=== PATIENT | male | born 1940 | race Caucasian/White ===

== ENCOUNTER 2021-01-27 14:02 | Day surgery (SDC) | payer MEDICARE, BC ==
[~2021-01-27] VITALS: Ht 193 cm; Wt 103.5 kg
[~2021-01-27 14:02] MED LIST: ADALAT CC30 MG PO; ASPIRIN 32325 MG/TAB PO; ASTELIN NASAL S34 ML NAS; B COMPLEX & B121 TAB PO; BETAPACE 80MG80 MG PO; CENTRUM1 TA1; FLONASEALLERGY NS; LOFIBRA160 MG PO; METAMUCIL3.4 GM/DOS PO; PROTONIX 40MG T40 MG PO; PULMICORT180 MCG/Ac IH; SINGULAIR 110 MG/TAB PO; SYNTHROID0.2 MG/TAB PO; ULTRAM 50MG TAB50 MG PO; ULTRAVATE CREAM15 GM TP; VENTOLIN0.09 MG IH; VIAGRA50 M1 PO; VOLTAREN GEL 1%1 TU TP; ZOCOR 20MG20 MG PO
[2021-01-27 14:40] VITALS: BP 123/97; PULSE 110; TEMP 98.3
[2021-01-27] MEDS ORDERED: CLARITIN 1010 MG/TAB PO (15:01)
[2021-01-27] MEDS ORDERED: CARTIA XT240 MG PO (15:03)
[2021-01-27] MEDS ORDERED: MIRALAX PA17 GM/Dose PO (15:06)
[2021-01-27] MEDS ORDERED: PREDNISONE10 MG PO (15:10)
[2021-01-27 15:45] VITALS: BP 108/80; PULSE 102; TEMP 97.6
--- NOTE | 2021-01-27 15:45 | NUR ---
Patient returned to bay 6 via cart. Cart brought into bay. Postop vital signs started. Patient is alert and oriented, request apple juice and orange jello. Will continue to monitor.
[2021-01-27 16:00] VITALS: BP 140/115; PULSE 103
--- NOTE | 2021-01-27 16:00 | NUR ---
Patient sitting up in bed, denies discomfort. Alert and oriented. Vital signs stable. Tolerating food an ddrink well. Will continue to monitor.
[2021-01-27 16:13] VITALS: BP 108/80; PULSE 119
--- NOTE | 2021-01-27 16:15 | NUR ---
Patient is sitting up in bed, denies discomfort. Alert and oriented. Patient request to be discharged.
--- NOTE | 2021-01-27 17:00 | NUR ---
Reviewed discharge instructions with patient and friend, both verbalized understanding. D/C IV with no complications. Instructed patient to dress and then call for transportation.
--- NOTE | 2021-01-27 17:15 | NUR ---
Transfered patient via wheelchair to [employer] personal vehicle accompanied by friend. All belonging returned to patient and sent with friend.
== END 2021-01-27 17:15 | disposition home or self-care (01) ==
LOC: SDCO 14:02
DX: K22.2 Esophageal obstruction (principal); K21.00 Gastro-esophageal reflux disease with esophagitis, without bleeding; K44.9 Diaphragmatic hernia without obstruction or gangrene; I10 Essential (primary) hypertension; E78.5 Hyperlipidemia, unspecified; E03.9 Hypothyroidism, unspecified; J30.2 Other seasonal allergic rhinitis; Z85.828 Personal history of other malignant neoplasm of skin; Z79.82 Long term (current) use of aspirin; Z79.899 Other long term (current) drug therapy; Z79.890 Hormone replacement therapy; Z79.51 Long term (current) use of inhaled steroids
CPT/HCPCS: C1726; J2704; J7120

== ENCOUNTER 2021-02-03 15:22 | Inpatient (IN) | payer MEDICARE, BC ==
[~2021-02-03] VITALS: Ht 193 cm; Wt 102.5 kg
[2021-02-03] VITALS (81 sets, daily range): BP systolic 122–141; BP diastolic 95–105; PULSE 89–114; O2SAT 89–100
[~2021-02-03 15:22] MED LIST changes: +CARTIA XT240 MG PO; +CLARITIN 1010 MG/TAB PO; +MIRALAX PA17 GM/Dose PO; +PREDNISONE10 MG PO
[2021-02-03 15:43] LABS: HEMATOCRIT 49.1 % (42.0-52.0); HEMOGLOBIN 16.5 g/dl (13.5-18.0); MEAN CELL VOLUME 111 fl (80.0-100.0); MEAN CORPUSCULAR HEMOGLOBIN 37 pg (27.0-31.0); MEAN CORPUSCULAR HGB CONC 34 g/dl (33.0-37.0); MEAN PLATELET VOLUME 11.2 fl (7.4-10.4); PLATELET COUNT 215 K/mm3 (130-400); RED BLOOD COUNT 4.42 M/mm3 (4.20-5.60); REDCELL DISTRIBUTION WIDTH-CV 15.5 % (11.5-14.5)
[2021-02-03 15:54] LABS: ALANINE AMINOTRANSFERASE 43 U/L (4-49); ALBUMIN 3.2 gm/dL (3.5-5.0); ALKALINE PHOSPHATASE 121 U/L (50-136); ANION GAP 2 mmol/L (7-16); AST,SGOT 53 U/L (15-37); BILIRUBIN,TOTAL 2.2 mg/dL (0.0-1.0); BLOOD UREA NITROGEN 16 mg/dL (9-20); CALCIUM 9.2 mg/dL (8.4-10.2); CARBON DIOXIDE 29 mmol/L (22-30); CHLORIDE 104 mmol/L (98-107); CREATININE, serum 1.12 (0.66-1.25); GLUCOSE 124 mg/dL (74-106); POTASSIUM 4.4 mmol/L (3.4-5.0); SODIUM 135 mmol/L (137-145); TOTAL PROTEIN 6.7 gm/dL (6.4-8.2)
[2021-02-03 16:07] LABS: TROPONIN-I < 0.012 ng/mL (0.000-0.035)
[2021-02-03 16:28] LABS: ANISOCYTOSIS 1+; BAND 23 % (0-10); LYMPHOCYTE 10 % (20.0-51.0); NEUTROPHILS 65 % (42.0-75.2); PLATELET ESTIMATE NORMAL (NORMAL)
[2021-02-03] MEDS ORDERED: [UNRECOGNIZED DRUG - REMARK] (17:45)
--- NOTE | 2021-02-03 19:55 | NUR ---
PT NOT IN ROOM AT THIS TIME.
--- NOTE | 2021-02-03 23:17 | NUR ---
Patient arrived to ICU from ER at approximately 2100. Alert and oriented x 4, and able to make needs known. Denies having pain and discomfort at this time. Peripheral IV to right AC with Cardizem drip running per orders. Site is without redness, warmth, swelling, and pain. Denies having SOB and dyspnea. LS CTA. Respirations even and unlabored. Heart rate irregular. Has been in the 70s-110s most of the time, but did get up to 125 when walking to bathroom, but did not sustain in the 120s. Denies having any chest pain or discomfort. Denies palpitations. Capillary refill less than 3 seconds. Non-tenting skin turgor. BSAx4. Abdomen soft and non-tender. When assisted to bathroom, urine was yellow and clear. Patient has laceration to left forehead, open to air, no drainage. Bruising to left eye, BUE, BLE. Scabs to left elbow and left knee. Dressings to skin tears/abrasions to left forearm/hand and right gonzalez/foot. Did not want dressings removed due to being just changed. Abrasion to right knee, tegaderm CDI. Patient reports all injuries are related to recent falls. Patient given sandwich box as requested. Voices no questions, needs, or concerns at this time. Resting in bed with call light within reach.
[2021-02-04] VITALS (250 sets, daily range): BP systolic 98–123; BP diastolic 66–96; PULSE 40–106; TEMP 97.7–98.4; O2SAT 89–100
[2021-02-04 05:45] LABS: HEMATOCRIT 44.8 % (42.0-52.0); HEMOGLOBIN 15.3 g/dl (13.5-18.0); MEAN CELL VOLUME 112 fl (80.0-100.0); MEAN CORPUSCULAR HEMOGLOBIN 38 pg (27.0-31.0); MEAN CORPUSCULAR HGB CONC 34 g/dl (33.0-37.0); MEAN PLATELET VOLUME 11.4 fl (7.4-10.4); PLATELET COUNT 195 K/mm3 (130-400); RED BLOOD COUNT 4.01 M/mm3 (4.20-5.60); REDCELL DISTRIBUTION WIDTH-CV 15.6 % (11.5-14.5)
[2021-02-04 06:00] LABS: ANION GAP 2 mmol/L (7-16); BLOOD UREA NITROGEN 16 mg/dL (9-20); CALCIUM 8.8 mg/dL (8.4-10.2); CARBON DIOXIDE 28 mmol/L (22-30); CHLORIDE 105 mmol/L (98-107); CREATININE, serum 0.94 (0.66-1.25); GLUCOSE 91 mg/dL (74-106); POTASSIUM 3.7 mmol/L (3.4-5.0); SODIUM 135 mmol/L (137-145)
[2021-02-04 06:05] LABS: MAGNESIUM 1.4 mg/dL (1.6-2.3)
[2021-02-04 06:06] LABS: BAND 8 % (0-10); EOSINOPHIL 1 % (0-4); LYMPHOCYTE 6 % (20.0-51.0); METAMYELOCYTE 1 % (0-0); NEUTROPHILS 82 % (42.0-75.2); PLATELET ESTIMATE NORMAL (NORMAL)
[2021-02-04 06:07] LABS: ANISOCYTOSIS 1+; HYPOCHROMIA 1+; POIKILOCYTOSIS 1+
[2021-02-04 06:08] LABS: OVALOCYTES 1+
--- NOTE | 2021-02-04 06:09 | NUR ---
Patient has been resting in bed with call light within reach. High fall risk precautions in place. Continues on Cardizem drip at 15 mg/hr. Continues to be in A-fib, HR ranging 60s-80s. Does increase to 120s when up walking. Denies having pain and discomfort. Voices no questions, needs, or concerns at this time. Resting in bed with call light within reach.
[2021-02-04 06:12] LABS: TROPONIN-I < 0.012 ng/mL (0.000-0.035)
--- NOTE | 2021-02-04 07:10 | NUR ---
RECEIVED REPORT FROM HOLLY WOOD. PT RESTING IN BED ON RA. CALL LIGHT WITHIN REACH. VSS. BREAKFAST TRAY ORDERED PER PT'S REQUEST.
--- NOTE | 2021-02-04 10:50 | NUR ---
DR CAHPARRO AT BEDSIDE FOR ASSESSMENT AND DISCUSSING POC WITH PT. PROVIDER STATES TO STOP CARDIZEM GTT AND HE WILL ORDER PO MEDICATIONS. SEE MAR.
--- NOTE | 2021-02-04 12:26 | NUR ---
DR ESCALANTE AT BEDSIDE FOR ASSESSMENT.
--- NOTE | 2021-02-04 14:07 | NUR ---
Plans to return home in independently. Patient reports that he resides alone and lost in 16. Patient reports that he has a son who is JERI Gallegos and a Friends that helps him who is a women Ilia Guo. Patient shares that he does not have home health. PCP is Dr. Bermeo with last apt 02/03/2021, Also works with Dr. Kelly and Dr. Ambriz. Patient reports that he has a walker but it is too small due to him being 6 ft 4. Patient reports that he obtains medications at [facility] on [facility]. Offered additional supports at home but declined. Patient reports that he is still very mobile and working. Educated in supports from case management. MIRELLA.
--- NOTE | 2021-02-04 14:55 | NUR ---
REPORT GIVEN TO HOLLY HILTON. RN STATES THAT ROOM IS NOT CLEANED YET AND WILL CALL BACK ONCE IT IS. PT UPDATED ON POC.
--- NOTE | 2021-02-04 16:07 | NUR ---
PT TRASNFERRED TO 311 VIA WC ON RA. ALL PERSONAL BELONGINGS SENT WITH PT.
--- NOTE | 2021-02-04 18:07 | NUR ---
Patient arrive from ICU and is very pleasant. Patient's visitor was present. During the assessment, this RN noticed the patient to have very limited sensation in bilateral feet. Patient's visitor and DPOA did show concern for the patient's well-being and do not feel that the patient's PCP is addressing all of the patient's needs/concerns. Patient does have multiple skin issues. Patient has abrasions on bilateral knees. One knee is covered with a dressing. Dressing was removed and a clean one was applied. Wound was rinsed with NS and covered again with a non-adherent dressing. There is an ulcer on the bottom of the patient's right foot that is wrapped. This dressing was left intact as the patient's PCP is managing this and just re-wrapped it at the patient's last visit. There is also a scabbed ulcer on the patient's 3rd toe, on the left foot. Patient has scattered ecchymosis and petechiae. The patient also has a laceration on the left side of his forehead, as well as a blackened eye. All of these injuries are related to a fall that the patient had at home. This RN assisted the patient to the bathroom and he did well. The patient is a bit unsteady and needs to hold onto something for stabilization. This RN will see about getting the patient a walker for use. Bed alarm and chair alarm is on, call light is within reach. Patient has been made aware that he is a fall risk and patient did verbalize understaning.
--- NOTE | 2021-02-04 22:46 | NUR ---
Patient assessed around 2124. Denies having pain and discomfort. High fall risk precuations in place. Using walker with one assist in room due to unsteady gait. Denies chest pain and discomfort. Telemetry showing A-fib, HR 70-90s at this time. Voices no questions, needs, or concerns at this time. Resting in bed with call light within reach.
[2021-02-05 00:22] VITALS: BP 104/64; PULSE 52; TEMP 97.6
[2021-02-05 03:43] VITALS: BP 119/82; PULSE 78; TEMP 97.7
--- NOTE | 2021-02-05 05:26 | NUR ---
Patient continues to show A-fib, with rates between 60s-80s on telemetry. Voices no questions, needs, or concerns at this time. Denies having pain and discomfort. Resting in bed with call light within reach.
[2021-02-05 07:11] VITALS: BP 99/74; PULSE 87; TEMP 98
[2021-02-05 07:40] LABS: CALCIUM 8.2 mg/dL (8.4-10.2); CREATININE, serum 0.81 (0.66-1.25); MAGNESIUM 1.9 mg/dL (1.6-2.3); POTASSIUM 3.6 mmol/L (3.4-5.0)
--- NOTE | 2021-02-05 10:53 | NUR ---
SPOKE WITH DR ESCALANTE ABOUT POTENTIAL HEART CATH, DR. ESCALANTE GAVE ORDER TO DC LOVENOX. ORDER PLACED.
[2021-02-05 11:07] LABS: HEMATOCRIT 48.8 % (42.0-52.0); HEMOGLOBIN 16.6 g/dl (13.5-18.0); MEAN CELL VOLUME 112 fl (80.0-100.0); MEAN CORPUSCULAR HEMOGLOBIN 38 pg (27.0-31.0); MEAN CORPUSCULAR HGB CONC 34 g/dl (33.0-37.0); MEAN PLATELET VOLUME 11.1 fl (7.4-10.4); PLATELET COUNT 247 K/mm3 (130-400); RED BLOOD COUNT 4.35 M/mm3 (4.20-5.60); REDCELL DISTRIBUTION WIDTH-CV 15.5 % (11.5-14.5)
[2021-02-05 11:14] LABS: CALCIUM 8.8 mg/dL (8.4-10.2); CREATININE, serum 0.91 (0.66-1.25); POTASSIUM 3.9 mmol/L (3.4-5.0)
[2021-02-05 11:18] LABS: INR 1.2 (0.8-3.0)
[2021-02-05 11:20] LABS: PARTIAL THROMBOPLASTIN TIME 36.5 SECONDS (26.0-37.0)
--- NOTE | 2021-02-05 11:24 | NUR ---
CALLED DR. LUGO TO CONFIRM ACCUCHECK ORDER. PHYSICIAN WANTED ACHS, ORDER PLACED
[2021-02-05 11:29] VITALS: BP 104/77; PULSE 89; TEMP 97.5
[2021-02-05 16:08] VITALS: BP 108/80; PULSE 89; TEMP 98
--- NOTE | 2021-02-05 17:20 | NUR ---
PT PLEASANT, AOX4, DENIES PAIN, AFIB RATE CONTROLLED AT REST, UNCONTROLLED WITH ACTIVITY, NO OTHER NEEDS AT THIS TIME.
[2021-02-05 19:09] VITALS: BP 108/66; PULSE 90; TEMP 97.7
--- NOTE | 2021-02-05 20:00 | NUR ---
Report received, assumed care for date night caregiver. Assessment comlete. A&Ox3. Denies pain/nausea/shortness of breath. VS stable. RIght AC INT flushes without difficulty. Plan of care discussed for this shift to include HS meds/NPO at midnight/calling for questions/concerns. Verbalizes understanding/denies needs. Call light in reach. Will monitor.
[2021-02-06] VITALS (9 sets, daily range): BP systolic 91–132; BP diastolic 60–94; PULSE 58–127; TEMP 97.4–98.3
--- NOTE | 2021-02-06 05:43 | NUR ---
Rested well this shift. Has been NPO since midnight for heart cath today. IV fluids hung and meds given per dr order. Denied pain/nausea. Short of breath with activity. Tele showing a fib. Denies current needs. Call light in reach. Will monitor.
--- NOTE | 2021-02-06 06:50 | NUR ---
Report with HOLLY Dyson. Pt resting in bed with eyes closed, resp even and unlabored. IVF's to gravity tubing infusing per orders without s/s of complications. Call light in reach. Bed alarm on.
--- NOTE | 2021-02-06 11:18 | NUR ---
Pt to landscape laborer for procedure via bed.
--- NOTE | 2021-02-06 12:55 | NUR ---
First visit from the estate and trust tax principal. Patient was in a procedure, estate and trust tax principal prayed for patient while standing outside their door.
--- NOTE | 2021-02-06 14:45 | NUR ---
After first releasing 5 mls air from TR band and no signs of bleeding, final 7 mls air released, still no signs of bleeding. Bandaid placed over right radial puncture site. POC reviewed with pt again. Call light in reach.
--- NOTE | 2021-02-06 15:14 | NUR ---
PT is recommending that the patient may need post-acute rehab. He is walking 200 ft with them. SW met with the patient to review d/c plan and discussed therapy's recommendation. The patient reports that he prefers returning home upon discharge and does not want to go to a SNF. The patient states that the [facility] is connected to [facility]. He states that he could just do that, but would probably need an order for it. SW discussed home health services and their benefits. The patient reports that he is not sure at this time and would like some time to think about home health vs outpatient therapy. SW to continue to follow.
[2021-02-06] MEDS ORDERED: NITROSTAT0.4 MG/TAB SL (16:45)
[2021-02-06] MEDS ORDERED: ZEBETA 5MG5 MG PO (16:46)
[2021-02-06] MEDS ORDERED: CAPOTEN 12.512.5 MG PO (16:48)
[2021-02-06] MEDS ORDERED: CARDIZEM 90MG T90 MG PO (16:48)
[2021-02-06] MEDS ORDERED: ZOCOR 10MG10 MG PO (16:48)
[2021-02-06] MEDS ORDERED: ASPIRIN E.C. 8181 MG PO (16:49)
[2021-02-06] MEDS ORDERED: MAG-OX 400400 MG/TAB PO (16:49)
[2021-02-06] MEDS ORDERED: MONODOX100 PO (16:50)
--- NOTE | 2021-02-06 17:45 | NUR ---
Dressings placed over right leg, foot, and knee wounds using aquacell, sof roll and coban. Discharge instructions reviewed with pt regarding new medications and follow-up appointments needing made. Pt verbalizes understanding, questions invited and answered.
--- NOTE | 2021-02-06 18:30 | NUR ---
Pt discharged home, escorted out of facility via WC accompanied by CARE SUPPORT REPRESENTATIVE.
== END 2021-02-06 18:45 | disposition home or self-care (01) | DRG 287 ==
LOC: COL.ER 15:22 → ICU 16:57 → MEDICAL 02-04 16:20
PROVIDERS: Internal Medicine Cardiovascular Disease; Nurse Practitioner Primary Care; ADMIT Internal Medicine
PROC: 4A023N7 Measurement of Cardiac Sampling and Pressure, Left Heart, Percutaneous Approach (ICD-10-PCS; principal; 2021-02-06)
PROC: B2111ZZ Fluoroscopy of Multiple Coronary Arteries using Low Osmolar Contrast (ICD-10-PCS; 2021-02-06)
DX: I48.0 Paroxysmal atrial fibrillation (principal); J44.1 Chronic obstructive pulmonary disease with (acute) exacerbation; I50.20 Unspecified systolic (congestive) heart failure; E78.5 Hyperlipidemia, unspecified; E03.9 Hypothyroidism, unspecified; K21.9 Gastro-esophageal reflux disease without esophagitis; F10.10 Alcohol abuse, uncomplicated; F17.210 Nicotine dependence, cigarettes, uncomplicated; Z20.822 Contact with and (suspected) exposure to COVID-19; E83.42 Hypomagnesemia; I49.9 Cardiac arrhythmia, unspecified; I87.8 Other specified disorders of veins; I25.10 Atherosclerotic heart disease of native coronary artery without angina pectoris
CPT/HCPCS: 99223-AI; 99232-AI; 99239; C1769; C1887; J1644; J1650; J1815; J2250; J2920; J3010; J3475; J7512; Q9967

== ENCOUNTER → 2021-03-13 | Outpatient (CLI) | payer MEDICARE, BC ==
[~2021-03-13] MED LIST changes: +ASPIRIN E.C. 8181 MG PO; +BETAMETHASONE D0.053 TP; +CAPOTEN 12.512.5 MG PO; +CARDIZEM 90MG T90 MG PO; +DIGITEK0.25 MG PO; +LASIX 20MG TABL20 MG PO; +MAG-OX 400400 MG/TAB PO; +MONODOX100 PO; +NITROSTAT0.4 MG/TAB SL; +PREDNISONE 5MG5 MG PO; +PROBIOTIC ACID1 EAC3 PO; +ZEBETA 5MG5 MG PO; +ZOCOR 10MG10 MG PO; +ZOSYN 3 GM-0.371 PD1 IV; +[UNRECOGNIZED DRUG - REMARK]
== END ==
LOC: ZCOL.LAB 16:19
DX: S91.301A Unspecified open wound, right foot, initial encounter (principal)

== ENCOUNTER → 2021-04-07 | Outpatient (CLI) | payer MEDICARE, BC | LOC: ZCOL.LAB 17:15 | DX: L97.509 Non-pressure chronic ulcer of other part of unspecified foot with unspecified severity (principal) ==

== ENCOUNTER → 2021-05-04 | Outpatient (CLI) | payer MEDICARE, BC | LOC: ZCOL.LAB 13:18 | DX: L97.509 Non-pressure chronic ulcer of other part of unspecified foot with unspecified severity (principal) ==

== ENCOUNTER 2021-05-26 16:29 | Inpatient (IN) | payer MEDICARE, BC ==
[~2021-05-26] VITALS: Ht 193 cm; Wt 88.0 kg
[~2021-05-26 16:29] MED LIST changes: -BETAMETHASONE D0.053 TP; -DIGITEK0.25 MG PO; -LASIX 20MG TABL20 MG PO; -PREDNISONE 5MG5 MG PO; -PROBIOTIC ACID1 EAC3 PO; -ZOSYN 3 GM-0.371 PD1 IV
[2021-05-26 17:07] LABS: BASO % 0.4 % (0.0-2.0); EOS % 0.1 % (0-4.0); GRAN # 5.2 K/mm3 (1.4-6.5); HEMATOCRIT 43.5 % (42.0-52.0); HEMOGLOBIN 14.6 g/dl (13.5-18.0); LYMPH # 1.4 K/mm3 (1.2-3.4); LYMPH % 18.6 % (20.0-51.0); MEAN CELL VOLUME 105 fl (80.0-100.0); MEAN CORPUSCULAR HEMOGLOBIN 35 pg (27.0-31.0); MEAN CORPUSCULAR HGB CONC 34 g/dl (33.0-37.0); MEAN PLATELET VOLUME 10.8 fl (7.4-10.4); MONO # 0.7 K/mm3 (0.1-0.6); MONO % 9.2 % (1.7-9.3); PLATELET COUNT 172 K/mm3 (130-400); RED BLOOD COUNT 4.15 M/mm3 (4.20-5.60); REDCELL DISTRIBUTION WIDTH-CV 14.7 % (11.5-14.5)
[2021-05-26 17:13] LABS: INR 1.1 (0.8-3.0); PROTHROMBIN TIME 12.1 SECONDS (9.7-12.8)
[2021-05-26 17:24] LABS: ALBUMIN 3.6 gm/dL (3.4-4.8); BILIRUBIN,TOTAL 1.2 mg/dL (0.2-1.2); CALCIUM 10.2 mg/dL (8.4-10.2); CREATININE, serum 1.13 mg/dL (0.72-1.25); POTASSIUM 3.8 mmol/L (3.5-4.5); TOTAL PROTEIN 8.3 gm/dL (6.2-8.1)
[2021-05-26 17:30] LABS: TROPONIN-I 0.012 ng/mL (0.00-0.033)
[2021-05-26] MEDS ORDERED: PREDNISONE 5MG5 MG PO (20:19)
[2021-05-26] MEDS ORDERED: LASIX 20MG TABL20 MG PO (20:20)
[2021-05-26 20:55] VITALS: BP 118/85; PULSE 54; TEMP 97.6
--- NOTE | 2021-05-26 21:15 | NUR ---
Admitted to medical floor from er- dx-afib/RVR,, on tele rate at this time 90-110, on heparin drip at 17.5cc/hr, on cardizem drip at 5cc/hr, will have next hepxa at 0030, alert/oriented x3, denies pain,has slight lower extremity , wound cultures ordered for wounds on feet-- has quarter size open area on bottom of right foot- redressed, also has 2 small open yamil on left 3rd toe, redressed,
--- NOTE | 2021-05-26 22:49 | NUR ---
Vancomycin Initial Dosing Pharmacy Note Ordering provider: Yoan Frederick MD Indication/duration: Osteomyelitis x 5 days Relevant comorbidities: HTN, HFrEF LABS: SCr = 1.13, WBC = 7.4 Recommendation: Will draw troughs and follow levels. Loading dose: 2 grams Maintenance dose: 1.25 grams every 12 hours Trough goal: 15-20 ug/mL
[2021-05-26 23:41] VITALS: BP 118/82; PULSE 127; TEMP 97.6
[2021-05-27] VITALS (8 sets, daily range): BP systolic 106–128; BP diastolic 72–95; PULSE 60–108; TEMP 97.5–98.5
--- NOTE | 2021-05-27 06:00 | NUR ---
Did not get much sleep due IV meds/lab work etc. VSS, most recent B/P 106/79,pulse 67-still in afib, remains on cardizem drip at 5mg/hr, Meka aware of B/P and said to just hold the 0700 dose of capoten this morning,, heparin drip at 14.5cc/hr and next hepxa check at 1000
--- NOTE | 2021-05-27 06:59 | NUR ---
Pt. progressing w/ plan of care. This RN introduced self and assessed pt. Pt. reports feeling well this AM. Pt. educated on coughing, deep breathing, and encouraged pt. to be OOB for meals. Pt. agreeable. Pt. oriented to using the telephone to order breakfast. Needs addressed. Call light and belongings in reach. Bed alarm on.
--- NOTE | 2021-05-27 12:41 | NUR ---
Lawn And Tree Service Spray Supervisor offered prayer and support with patient.
--- NOTE | 2021-05-27 14:42 | NUR ---
SW met with patient to complete intake. Patient provides that he lives alone in [place] and states his point of contact is son Duc Gallegos [phone]. Patient states that he uses a walker is independent with ADL's and does not currently utilize a HH service. Patient provides that his PCP is Dr. Bermeo, pharmacy is [facility] in and states he is able to afford his medication. Patient also provides that his DPOA of HC is his son Duc. Patient states that at this time his plan is to return back to his home up discharge, and has no concern with doing so. SW will continue to follow. DC plan: Home (patient states he will consider HH only if needed)
--- NOTE | 2021-05-27 16:17 | NUR ---
Pt. progressing w/ plan of care. Pt. worked with therapy today and did well. Pt. has been sitting OOB in the chair most of the day. This RN spoke w/ Dr. Guo regarding pt.'s cardizem drip. Dr. Guo ordered cardizem drip to be decreased to 2.5mg/hr. New rate changed per Dr. Guo and pharmacy. Pt. sitting upright in chair ordering dinner at this time. Needs addressed, call light and belongings in reach.
--- NOTE | 2021-05-27 20:45 | NUR ---
Initial shift assessment done- denies pain/SOB, tele on afib, rate 70,s, VSS, heparin drip at 11.5cc/hr, cardizem drip at 2.5cc/hr. Next hepxa at 0100. has been up in chair most of the day-- helped back to bed at this time- using urinal without problems.
[2021-05-28] VITALS (7 sets, daily range): BP systolic 118–135; BP diastolic 59–98; PULSE 67–112; TEMP 97.4–98.5
--- NOTE | 2021-05-28 06:03 | NUR ---
Has been resting fairly well for the past couple hours- vitals very stable, continues in afib, rate mostly 70-80,s,,, does jump up to 110-120/min when using the urinal at bedside. Cardizem drip at 2.5cc/hr, heparing drip at 11.5cc/hr, next hepxa at 0730.
[2021-05-28 08:25] LABS: BASO % 0.7 % (0.0-2.0); EOS # 0.1 K/mm3 (0.0-0.7); EOS % 1.1 % (0-4.0); GRAN # 3.7 K/mm3 (1.4-6.5); GRAN % 60.1 % (42.2-75.2); HEMATOCRIT 42.3 % (42.0-52.0); HEMOGLOBIN 13.8 g/dl (13.5-18.0); LYMPH # 1.7 K/mm3 (1.2-3.4); MEAN CELL VOLUME 107 fl (80.0-100.0); MEAN CORPUSCULAR HEMOGLOBIN 35 pg (27.0-31.0); MEAN CORPUSCULAR HGB CONC 33 g/dl (33.0-37.0); MEAN PLATELET VOLUME 11.3 fl (7.4-10.4); MONO # 0.7 K/mm3 (0.1-0.6); MONO % 10.6 % (1.7-9.3); PLATELET COUNT 153 K/mm3 (130-400); RED BLOOD COUNT 3.96 M/mm3 (4.20-5.60); REDCELL DISTRIBUTION WIDTH-CV 14.6 % (11.5-14.5)
[2021-05-28 08:31] LABS: ALBUMIN 3.1 gm/dL (3.4-4.8); CALCIUM 9.4 mg/dL (8.4-10.2); CREATININE, serum 0.95 mg/dL (0.72-1.25); MAGNESIUM 1.7 mg/dL (1.6-2.6); PHOSPHOROUS 3.3 mg/dL (2.3-4.7); POTASSIUM 3.3 mmol/L (3.5-4.5)
--- NOTE | 2021-05-28 11:07 | NUR ---
Patient laying in bed upon entering the room. Patient does not have any complaints/concerns this morning. Patient remains on caridzem drip @ 2.5 mL/hr and heparin drip @ 11.5 mL/hr.
--- NOTE | 2021-05-28 18:29 | NUR ---
Patient has done well today. Cardizem gtt was discontinued per . Patient's IV in his right forearm was leaky. This RN was doing a dressing change, and the IV continued to leak. IV was removed. Patient still has a working IV in his left forearm.
--- NOTE | 2021-05-28 20:00 | NUR ---
Report received, assumed care for pie dough roller. Assessment complete. A&Ox4. Denies pain/nausea/shortness of breath. VS stable. Heparin@11.5ml/hr to left FA IV infusing without difficulty. New IV started to right forearm x2 attempts-20g for antibiotic infusion. Tele reporting a-Fib. Plan of care discussed for this shift to include meds/fluid restriction/calling for questions/concerns. Verbalizes understanding/denies needs. Call light in reach. Will monitor.
[2021-05-29] VITALS (9 sets, daily range): BP systolic 91–145; BP diastolic 73–93; PULSE 72–144; TEMP 97.4–98.5
--- NOTE | 2021-05-29 01:00 | NUR ---
Resting eyes closed. NO s/s of pain noted.
--- NOTE | 2021-05-29 05:40 | NUR ---
Rested well this shift. Fluid restriction enforced. Increased urine output. Denied pain/nausea/shortness of breath. VS remained stable. Tele reports a-fib. Denies current questions/concerns. Call light in reach. Will monitor.
--- NOTE | 2021-05-29 08:19 | NUR ---
PT ALERT AND ORIENTED. PT HAS RASH ON BACK EXTENDING FROM SHOULDER BLADES TO LOW BACK. PT HAS ULCER ON BALL OF RIGHT FOOT AND LEFT THIRD TOE. DRESSINGS, CLEAN, DRY, INTACT. PT HAS 1+ PULSES IN DORSALIS PEDIS AND POSTERIOR TIBIAL, CAP REFILL <3S. PT HAS RONEL DISCOLORATION OF FEET BILATERALLY. PT CALL LIGHT WITHIN REACH. BREAKFAST ON TABLE.
--- NOTE | 2021-05-29 08:26 | NUR ---
NOTIFIED JOANIE RIOS OF PT TACHYCARDIA. EKG ORDERS RECEIVED BY PHONE.
[2021-05-29 09:53] LABS: BASO % 0.7 % (0.0-2.0); EOS # 0.1 K/mm3 (0.0-0.7); EOS % 1.2 % (0-4.0); GRAN # 3.2 K/mm3 (1.4-6.5); GRAN % 56.8 % (42.2-75.2); HEMATOCRIT 42.8 % (42.0-52.0); HEMOGLOBIN 14.1 g/dl (13.5-18.0); LYMPH # 1.7 K/mm3 (1.2-3.4); LYMPH % 30.4 % (20.0-51.0); MEAN CELL VOLUME 105 fl (80.0-100.0); MEAN CORPUSCULAR HEMOGLOBIN 35 pg (27.0-31.0); MEAN CORPUSCULAR HGB CONC 33 g/dl (33.0-37.0); MEAN PLATELET VOLUME 11.5 fl (7.4-10.4); MONO # 0.6 K/mm3 (0.1-0.6); MONO % 10.5 % (1.7-9.3); PLATELET COUNT 161 K/mm3 (130-400); RED BLOOD COUNT 4.06 M/mm3 (4.20-5.60); REDCELL DISTRIBUTION WIDTH-CV 14.5 % (11.5-14.5)
--- NOTE | 2021-05-29 10:23 | NUR ---
NOTIFIED DR. ESCALANTE OF PT TACHYCARDIA AND NEW EKG THIS AM.
[2021-05-29 10:36] LABS: CALCIUM 9.1 mg/dL (8.4-10.2); CREATININE, serum 1.13 mg/dL (0.72-1.25); MAGNESIUM 1.7 mg/dL (1.6-2.6); PHOSPHOROUS 3.3 mg/dL (2.3-4.7); POTASSIUM 3.2 mmol/L (3.5-4.5)
--- NOTE | 2021-05-29 13:29 | NUR ---
NOTIFIED HOLLY POP WITH DR. WHATLEY OF PT SUSTAINED TACHYCARDIA.
--- NOTE | 2021-05-29 16:47 | NUR ---
Lung Gun Operator followed up with patient on PT recommendation for SNF. Patient is agreeable to this and would like referrals sent to [facility] in [place] and [facility]. Patient was scheduled for an amputation of Saturday, however the surgery was moved up to Saturday. Kamilah at [facility] advised they can accept. Shaggy at [facility] advised they can accept as long as patient does not need IV antibiotics.
--- NOTE | 2021-05-29 19:09 | NUR ---
Pt continuing on plan of care. Pt denied pain this shift. Pt tachycardia managed with medications per orders. Will pass on to councilperson. Pt heparin gtt therapeutic x2, next lab in AM. Pt able to ambulate SBA. No significant changes in pt status noted this shift.
--- NOTE | 2021-05-29 20:30 | NUR ---
Initial shift assessment done- sitting up in chair, denies pain/SOB, tele on- afib rate 88-105, B/P 111/73. Heparin drip at 11.5cc/hr , next hepxa at 0500 in the am. Pt states may be able to do the left toe amputation on saturday instead of saturday- denies any requests.
[2021-05-30] VITALS (7 sets, daily range): BP systolic 90–136; BP diastolic 55–98; PULSE 71–104; TEMP 97.6–98.3
--- NOTE | 2021-05-30 05:46 | NUR ---
Quiet night- VSS, heart rate has been in the 70-80,s all night, afib, Heparin drip at 11.5cc/hr all night- will have hepxa this morning.
[2021-05-30 07:27] LABS: BASO % 0.9 % (0.0-2.0); CALCIUM 9.6 mg/dL (8.4-10.2); CREATININE, serum 1.19 mg/dL (0.72-1.25); EOS # 0.1 K/mm3 (0.0-0.7); GRAN # 2.1 K/mm3 (1.4-6.5); HEMATOCRIT 42.7 % (42.0-52.0); HEMOGLOBIN 14.5 g/dl (13.5-18.0); LYMPH # 1.5 K/mm3 (1.2-3.4); LYMPH % 33.7 % (20.0-51.0); MEAN CELL VOLUME 104 fl (80.0-100.0); MEAN CORPUSCULAR HEMOGLOBIN 35 pg (27.0-31.0); MEAN CORPUSCULAR HGB CONC 34 g/dl (33.0-37.0); MEAN PLATELET VOLUME 11.6 fl (7.4-10.4); MONO # 0.7 K/mm3 (0.1-0.6); MONO % 15.5 % (1.7-9.3); PLATELET COUNT 144 K/mm3 (130-400); POTASSIUM 3.8 mmol/L (3.5-4.5); RED BLOOD COUNT 4.12 M/mm3 (4.20-5.60); REDCELL DISTRIBUTION WIDTH-CV 14.3 % (11.5-14.5)
--- NOTE | 2021-05-30 10:03 | NUR ---
Pt. sitting up in chair. Assessment complete. Telemetry on. HR irregular. IV infusing Heparin drip to L forearm, IV site patent. Bilat lower legs dressing. L foot 3rd toe dressing, Rt foot dressing CDI. Cap refill <3 sc, no edema noted BLE. Pt reports decreased sensation to bilat feet, denies pain.
[2021-05-30] MEDS ORDERED: BETAMETHASONE D0.053 TP (11:03)
--- NOTE | 2021-05-30 12:12 | NUR ---
VERIFIED WITH DR. AVA BUTT TO GIVE AMIODARONE WITH SOFT BP. RECHECKED MANUALLY AT THIS TIME,
--- NOTE | 2021-05-30 13:07 | NUR ---
PT ALERT AND ORIENTED. PT ABLE TO AMBUATE SBA TO BATHROOM. PT LEGS DUSKY AND COOL TO TOUCH. PT FEET DUSKY, PURPLE IN COLOR. CAP REFILL <3S. PULSES 2+ IN RADIAL AND DORSALIS PEDIS. LEFT POSTERIOR TIBIAL PULSE 1+, RIGHT POSTERIOR TIBIAL PULSE 2+. BILATERAL LOWER EDEMA AROUND ANKLES 1+ PITTING. PT HAS GENERALIZED BRUISES ON UPPER ARMS FROM PREVIOUS IV STICKS. PT CALL LIGHT WITHIN REACH, NO OTHER NEEDS AT THIS TIME.
--- NOTE | 2021-05-30 15:25 | NUR ---
Wound culture report returns with MDR Klebsiells oxytoca. Nurse reports this specimen obtained with exam where there was small amount of drainage -- post culture swab, wound wrapped securely. Dressing has remained dry with no soak through. With contained drainage -- will not require contact precautions at this time---will monitor and adjust precautions as needed. Yocasta Parish RN, Infection Prevention.
[2021-05-30 15:44] LABS: MUCOUS Present /lpf; PH 5 (5-8); SQUAMOUS EPITHELIAL 0-2 /hpf; URINE APPEARANCE Clear; URINE BACTERIA None Seen /hpf; URINE BILIRUBIN Negative (NEGATIVE); URINE BLOOD Negative (NEGATIVE); URINE COLOR Yellow; URINE GLUCOSE Negative (NEGATIVE); URINE KETONE Negative (NEGATIVE); URINE LEUKOCYTE ESTERASE Negative (NEGATIVE); URINE NITRATE Negative (NEGATIVE); URINE PROTEIN(semi-quant) Negative (NEGATIVE); URINE RBC 0-2 /hpf; URINE UROBILINOGEN Negative (NEGATIVE)
[2021-05-30 16:08] LABS: COLLECTION METHOD CLEAN CATCH
--- NOTE | 2021-05-30 16:23 | NUR ---
Archaeologist contacted Kamilah at [facility] and provided update that patient will have surgery tomorrow. SW met with patient and provided update that both [facility] and [facility] can tentatively accept. Patient would like some time to consider the options. SUSAN contacted patient's son, Duc and provided update. SUSAN was approached by Julisa CALVO as she was walking with patient and she advised she thought patient would be a good IPR candidate and patient would like a screen placed. SUSAN contacted [place] with IPR and gave referral.
--- NOTE | 2021-05-30 16:56 | NUR ---
Pt continuing on plan of care. Pt blood pressure soft during 1200 assessment, notified Dr. Conde and received verbal confirmation okay to give medications. Pt able to express concerns/needs. Call light within reach. No significant changes in pt status noted this shift.
--- NOTE | 2021-05-30 23:14 | NUR ---
ALERT AND OX4. DENIES SOA, CHEST PAIN OR DIZZY. UP AMB IN ROOM. WILL BE NPO AT MIDNIGHT. HEP GTT GOING AT 11.5ML/HR. TELE AFIB,CONTROLLED. ZOSYN. CONSENTED FOR SURGERY. POC DISCUSSED. WILL BE SHUTTING HEP OFF AT 0100 IN PREP FOR SURG. CALL LIGHT WI REACH. NEEDS MET.
[2021-05-31] VITALS (14 sets, daily range): BP systolic 103–143; BP diastolic 74–98; PULSE 66–106; TEMP 97.3–97.9
--- NOTE | 2021-05-31 05:42 | NUR ---
pt am meds given. leonela johnson. lr w or tubing at bedside, consented.
--- NOTE | 2021-05-31 08:21 | NUR ---
Patient just arrived back from his procedure. This RN received report from Noar. Patient is A&Ox4, and states that he "just feels sleepy". Patient otherwise feels fine and denies any pain at this time. [facility] [facility] student is in the room with the patient.
--- NOTE | 2021-05-31 09:41 | NUR ---
Pt. is AOx4 after anesthesia. Resting quietly. Telemetry on. Denies any N/V or pain. Dressing is CDI, L3 toe; cap refill <3 secs. IV R forearm patent NC @ 250mL/hr.
--- NOTE | 2021-05-31 16:26 | NUR ---
Patient has done well today and has been up ambulating w/ SBA. Patient continues to deny any pain.
--- NOTE | 2021-05-31 16:42 | NUR ---
Career And Technology Education Teacher faxed clinical updates to [facility] and [facility]. SW met with patient to check in and patient advised he would prefer to go to [facility] if able. Screen placed yesterday.
[2021-06-01 01:41] VITALS: BP 137/92; PULSE 88; TEMP 98
[2021-06-01 06:52] LABS: BASO % 0.7 % (0.0-2.0); EOS # 0.1 K/mm3 (0.0-0.7); GRAN # 2.1 K/mm3 (1.4-6.5); GRAN % 46.3 % (42.2-75.2); HEMATOCRIT 43.2 % (42.0-52.0); HEMOGLOBIN 14.6 g/dl (13.5-18.0); LYMPH # 1.5 K/mm3 (1.2-3.4); LYMPH % 31.9 % (20.0-51.0); MEAN CELL VOLUME 103 fl (80.0-100.0); MEAN CORPUSCULAR HEMOGLOBIN 35 pg (27.0-31.0); MEAN CORPUSCULAR HGB CONC 34 g/dl (33.0-37.0); MEAN PLATELET VOLUME 11.8 fl (7.4-10.4); MONO # 0.9 K/mm3 (0.1-0.6); MONO % 18.7 % (1.7-9.3); PLATELET COUNT 144 K/mm3 (130-400); RED BLOOD COUNT 4.21 M/mm3 (4.20-5.60)
[2021-06-01 07:13] LABS: CREATININE, serum 1.22 mg/dL (0.72-1.25); POTASSIUM 3.6 mmol/L (3.5-4.5)
[2021-06-01 07:31] VITALS: BP 106/76; PULSE 71; TEMP 98.1
--- NOTE | 2021-06-01 10:08 | NUR ---
Patient sitting in recliner upon entering the room. Patient has no complaints/concerns this morning.
[2021-06-01 11:04] VITALS: BP 87/57; PULSE 90; TEMP 97.7
--- NOTE | 2021-06-01 15:20 | NUR ---
Physical Sciences Professor collaborated with PT/OT who advise that patient is doing well and would be appropriate to return home with Home Health services. SUSAN followed up with patient who is agreeable to this and would prefer to return home with instead of post acute rehab. SUSAN provided Medicare.gov list of HH agencies and patient selected [facility]. SUSAN contacted Jeanette at [facility] and faxed referral. SUSAN was contacted by [place] with IPR and she reported patient was going to be too function for IPR anyway. SUSAN also notified [facility] and [facility] in change in discharge plan. SUSAN contacted patient's son, Duc and updated him on discharge plan. Patient will likely discharge tomorrow with [facility]. Discharge Plan: Home with [facility]
[2021-06-01 15:51] VITALS: BP 106/72; PULSE 52; TEMP 97.5
--- NOTE | 2021-06-01 17:38 | NUR ---
Patient has done well today. This RN stood by while the patient ambulated the hallway, patient was steady. Patient continues to deny any pain.
[2021-06-01 20:54] VITALS: BP 125/97; PULSE 65; TEMP 97.4
[2021-06-02] VITALS (7 sets, daily range): BP systolic 104–131; BP diastolic 67–82; PULSE 72–156; TEMP 97.9–98.6
--- NOTE | 2021-06-02 | NUR ---
PT LAYING IN BED, FALLING ASLEEP. TOOK ALL MEDICATIONS PRESCRIBED. ASSESSMENT COMPLETE. PT DENIES ANY PAINS OR COMPLAINTS. PT IS PLEASANT AND COOPERATIVE. PT STATED HE IS READY TO LEAVE HOPEFULLY TOMORROW. CALL LIGHT IS IN REACH. NO OTHER NEEDS
--- NOTE | 2021-06-02 05:19 | NUR ---
PT HAS HAD UNEVENTFUL NIGHT. SLEPT MOST OF NIGHT EXCEPT TO TAKE MEDICATIONS AND GO TO RESTROOM. PT HAS REMAINED PLEASANT AND COOPERATIVE. CALL LIGHT IN REACH, NO OTHER NEEDS AT THIS TIME.
--- NOTE | 2021-06-02 10:39 | NUR ---
Scheduled medication given. Shift assessment performed. Patient denies any pain, chest pain, discomfort, SOA, or further needs at this time. Right foot dressing intact. Patient states that he has an ulcer on right foot. It is currently dressed, so unable to assess at this time. Call light in reach. VSS. Patient A&O.
--- NOTE | 2021-06-02 11:09 | NUR ---
Patient's right foot ulcer assessed. Full thickness with discharge present. Odor noted. Wound cleaned and dressed. Breakdown noted on toes. Provider aware.
--- NOTE | 2021-06-02 16:08 | NUR ---
Brake Repair Supervisor attended clinical rounds with the team and patient to have MRI before antibiotic regimen can be determined.
--- NOTE | 2021-06-02 18:00 | NUR ---
Patient has had an ok day. Denies any pain, discomfort, SOA, or further needs at this time. Call light in reach. VSS. Patient A&O.
--- NOTE | 2021-06-02 19:20 | NUR ---
PT LAYING IN BED. CALL LIGHT IN REACH. NO COMPLAINTS OF PAIN. PT IS PLEASANT. NO NEEDS AT THIS TIME.
[2021-06-03] VITALS (7 sets, daily range): BP systolic 93–119; BP diastolic 60–77; PULSE 54–81; TEMP 97.3–98.3
--- NOTE | 2021-06-03 05:40 | NUR ---
PT HAD UNEVENTFUL NIGHT. PT SLEPT ALL NIGHT. PT DENIES PAIN. PT REMAINS AFEBRILE. PT STATES READINESS TO DISCHARGE. WHEELS LOCKED, BED IN LOWEST POSITION, CALL LIGHT IN REACH. NO OTHER NEEDS AT THIS TIME.
[2021-06-03 07:32] LABS: BASO % 0.8 % (0.0-2.0); EOS # 0.1 K/mm3 (0.0-0.7); EOS % 2.1 % (0-4.0); GRAN # 2.4 K/mm3 (1.4-6.5); GRAN % 45.6 % (42.2-75.2); HEMATOCRIT 45.2 % (42.0-52.0); HEMOGLOBIN 15.1 g/dl (13.5-18.0); LYMPH # 1.8 K/mm3 (1.2-3.4); LYMPH % 33.8 % (20.0-51.0); MEAN CELL VOLUME 104 fl (80.0-100.0); MEAN CORPUSCULAR HEMOGLOBIN 35 pg (27.0-31.0); MEAN CORPUSCULAR HGB CONC 33 g/dl (33.0-37.0); MEAN PLATELET VOLUME 11.7 fl (7.4-10.4); MONO # 0.9 K/mm3 (0.1-0.6); MONO % 17.3 % (1.7-9.3); PLATELET COUNT 185 K/mm3 (130-400); RED BLOOD COUNT 4.34 M/mm3 (4.20-5.60); REDCELL DISTRIBUTION WIDTH-CV 13.8 % (11.5-14.5)
[2021-06-03 07:33] LABS: CALCIUM 10.3 mg/dL (8.4-10.2); CREATININE, serum 1.25 mg/dL (0.72-1.25); POTASSIUM 3.6 mmol/L (3.5-4.5)
--- NOTE | 2021-06-03 09:55 | NUR ---
Patient laying in bed upon entering the room. Patient is ready to leave, and states "If there aren't orders to go home yet, then I'm going on my own".. Dr. Soto notified of this. Patient otherwise has no complaints/concerns.
--- NOTE | 2021-06-03 20:30 | NUR ---
Initial shift assessment done- denies pain, Up in room, steady on feet, VSS, Tele on- afib, rate 80,s, No requests, hopes to go home on [place] after PICC placed
[2021-06-04] VITALS (7 sets, daily range): BP systolic 85–126; BP diastolic 64–92; PULSE 57–90; TEMP 97.4–98.1
--- NOTE | 2021-06-04 05:46 | NUR ---
Quiet night- no requests, VSS, Tele on, afib, rate 60-70,s during the night.
[2021-06-04 07:02] LABS: HEMATOCRIT 42.6 % (42.0-52.0); HEMOGLOBIN 14.8 g/dl (13.5-18.0); MEAN CELL VOLUME 101 fl (80.0-100.0); MEAN CORPUSCULAR HEMOGLOBIN 35 pg (27.0-31.0); MEAN CORPUSCULAR HGB CONC 35 g/dl (33.0-37.0); MEAN PLATELET VOLUME 11.8 fl (7.4-10.4); PLATELET COUNT 190 K/mm3 (130-400); RED BLOOD COUNT 4.22 M/mm3 (4.20-5.60); REDCELL DISTRIBUTION WIDTH-CV 13.6 % (11.5-14.5)
[2021-06-04 07:55] LABS: CREATININE, serum 1.23 mg/dL (0.72-1.25); POTASSIUM 3.5 mmol/L (3.5-4.5)
--- NOTE | 2021-06-04 08:42 | NUR ---
Patient sitting up on the edge of the bed eating breakfast upon entering the room. Patient does not have complaints/concerns this morning. Patient is A&Ox4 and is independent in the room. Patient currently has zosyn infusing at 25mL/hr.
[2021-06-04 09:03] LABS: EOSINOPHIL 3 % (0-4); LYMPHOCYTE 43 % (20.0-51.0); NEUTROPHILS 39 % (42.0-75.2); PLATELET ESTIMATE NORMAL (NORMAL)
--- NOTE | 2021-06-04 17:27 | NUR ---
Patient has done well today and has not had any concerns or complaints. Patient remains independent in his room. Patient hopeful that he will discharge tomorrow.
--- NOTE | 2021-06-04 20:30 | NUR ---
Initial shift assessment done- sitting up in chair- doing some reading, no requests, denies pain/SOB, tele on ,afib 70,s/min. Continues with IV antibiotics per orders. Voiding kristin urine per urinal.
[2021-06-05 03:20] VITALS: BP 125/75; PULSE 78; TEMP 98.3
--- NOTE | 2021-06-05 06:19 | NUR ---
Quiet night, VSS, states did sleep fairly well
--- NOTE | 2021-06-05 06:35 | NUR ---
Report received from HOLLY Peterson. Pt. resting in bed, awake. This RN introduced self to patient. Pt. denies needs at this time, call light and belongings in reach.
[2021-06-05 06:55] LABS: BASO # 0.1 K/mm3 (0.0-0.2); BASO % 1.2 % (0.0-2.0); EOS # 0.1 K/mm3 (0.0-0.7); EOS % 2.3 % (0-4.0); GRAN # 2.1 K/mm3 (1.4-6.5); GRAN % 42.9 % (42.2-75.2); HEMATOCRIT 43.7 % (42.0-52.0); HEMOGLOBIN 14.9 g/dl (13.5-18.0); LYMPH # 1.7 K/mm3 (1.2-3.4); LYMPH % 34.7 % (20.0-51.0); MEAN CELL VOLUME 102 fl (80.0-100.0); MEAN CORPUSCULAR HEMOGLOBIN 35 pg (27.0-31.0); MEAN CORPUSCULAR HGB CONC 34 g/dl (33.0-37.0); MEAN PLATELET VOLUME 11.6 fl (7.4-10.4); MONO # 0.9 K/mm3 (0.1-0.6); MONO % 18.5 % (1.7-9.3); PLATELET COUNT 189 K/mm3 (130-400); RED BLOOD COUNT 4.28 M/mm3 (4.20-5.60); REDCELL DISTRIBUTION WIDTH-CV 13.8 % (11.5-14.5)
[2021-06-05 07:38] LABS: CREATININE, serum 1.36 mg/dL (0.72-1.25)
[2021-06-05 07:51] VITALS: BP 129/75; PULSE 66; TEMP 98
[2021-06-05 12:47] VITALS: BP 95/60; PULSE 92; TEMP 97.6
--- NOTE | 2021-06-05 13:39 | NUR ---
Pt. progressing w/ plan of care. Pt. is getting a PICC line today with plans for pt. to discharge today or tomorrow. Plan for pt. to get outpatient antibiotics for six more weeks. Pt. agreeable w/ plan of care. Nurse Francisco in pt.'s room placing PICC in arm at this time. Needs have been addressed throughout the day, pt. denies pain and denies issues.
--- NOTE | 2021-06-05 16:09 | NUR ---
Body Liner attended clinical rounds with the team and patient will need IV Zosyn three times daily for six weeks. Hospitalist reviewed options including outpatient antibiotics, home antibiotics, and SNF. After reviewing barriers to each options, patient would like to do home antibiotics and feels he can manage the antibiotics as long as Home Health provides education. SUSAN updated Jeanette at [facility] who advised they can do this education along with PICC dressing changes and labs. SUSAN contacted Cesilia at [facility] and gave referral. Cesilia is running patient's insurance and will contact patient about potential co-pay. Cesilia advised patient could have a pump that would only require him to change a bag once daily, which may be the easiest option for patient. Cesilia will follow up after making contact with patient and running his insurance.
[2021-06-05 16:31] VITALS: BP 104/71; PULSE 86; TEMP 97.4
[2021-06-05 19:50] VITALS: BP 117/62; PULSE 67; TEMP 97.6
[2021-06-05 23:58] VITALS: BP 104/71; PULSE 69; TEMP 97.5
[2021-06-06] VITALS (8 sets, daily range): BP systolic 78–130; BP diastolic 56–80; PULSE 60–83; TEMP 97.3–98.8
--- NOTE | 2021-06-06 06:03 | NUR ---
Rested quietly throughout night, telemetry with controlled afib with rate of 80, vs stable, tolerating antibiotic therapy, denies pain, updated on plan of care- verbalized understanding.
--- NOTE | 2021-06-06 07:34 | NUR ---
PT RESTING IN BED
[2021-06-06] MEDS ORDERED: ZEBETA 5MG5 MG PO (09:35)
[2021-06-06] MEDS ORDERED: DIGITEK0.25 MG PO (09:35)
[2021-06-06] MEDS ORDERED: ZOSYN 3 GM-0.371 PD1 IV (09:39)
--- NOTE | 2021-06-06 09:40 | NUR ---
PT PLEASANT, AOX4, ASSESSMENT PERFORMED, DRESSING TAKEN OFF OF R FOOT ULCER, WOUND CLEANED AND REDRESSED. BLOOD DRAWN FOR LAB OUT OF PICC LINE, LINE FLUSHED, MEDICATIONS GIVEN, VITALS REVIEWED, NO OTHER NEEDS AT THIS TIME
[2021-06-06] MEDS ORDERED: PROBIOTIC ACID1 EAC3 PO (09:58)
[2021-06-06 10:17] LABS: CALCIUM 9.9 mg/dL (8.4-10.2); CREATININE, serum 1.31 mg/dL (0.72-1.25); POTASSIUM 3.7 mmol/L (3.5-4.5)
--- NOTE | 2021-06-06 13:00 | NUR ---
REPORTING LOW BP VIA TECH, MANUAL CHECKED AT 78 SYSTOLIC, PT DENIES SYMPTOMS DR. SANTANA INFORMED, 250 BOLUS ORDERED AND GIVEN, WHEN ENTERING ROOM TO HANG BOLUS PT WAS STANDING AND REPORTED DIZZINESS. TOLD PT TO SIT AND NOT GET UP WITHOUT ASSISTANCE, PT DENIES DIZZINESS AT REST, BOLUS GIVEN, BP RECHECKED AT 83/56. DR. SANTANA NOTIFIED AND HOURLY BP CHECKS ORDERED.
--- NOTE | 2021-06-06 15:55 | NUR ---
SUSAN contacted and faxed the IV antibiotic script to Paulette at [facility] this morning. Paulette reports that she is working on getting the antibiotics delivered to his home today. She reports that she will be up to the hospital soon for education. SUSAN met with the patient to update. He is in agreement to the plan. He reports that he will have a ride back home. SUSAN presented and read the IM form outloud to him. The patient verbalized understanding and signed the form. He declined a copy. The patient's RN notified SUSAN this afternoon that the patient's blood pressure dropped and he will no longer be discharging today. SUSAN updated Paulette with [facility]. Paulette was actually in the patient's room. Paulette reports that they can have their custodian just deliver the antibiotics to the hospital, that way they will be ready to go with the patient, when he is ready to discharge. SUSAN collaborated with pharmacy. The pharmacy is okay with the patient's IV antibiotics being delivered to the hospital. SUSAN updated Paulette. SUSAN attempted to contact Jeanette at [facility] to update. SUSAN left her a voicemail.
--- NOTE | 2021-06-06 17:34 | NUR ---
PT BP INC, PT DENIES S/S OF HYPOTENSION, UNEVENTFUL SHIFT, UNABLE TO REACH ORTHO TO ASK ABOUT DRESSING CHANGES ON L FOOT, WILL ATTEMPT TOMORROW, PT DENIES PAIN, R ULCER DRESSING CHANGED, PT REPORTS TINY AMOUNT OF BLOOD IN STOOL BUT FLUSHED IT BEFORE VISUALIZATION, NO OTHER NEEDS
[2021-06-07 00:10] VITALS: BP 112/71; PULSE 81; TEMP 97.9
[2021-06-07 04:09] VITALS: BP 112/80; PULSE 72; TEMP 97.9
--- NOTE | 2021-06-07 04:42 | NUR ---
B/P stable, no c/o pain, dressing to foot c/d/i, updated on plan of care- verbalized understanding.
[2021-06-07 07:39] VITALS: BP 98/68; PULSE 70; TEMP 97.8
--- NOTE | 2021-06-07 08:39 | NUR ---
Linda from vascular notified of need for duplex study on this pt. Pt had soft bp this am, Dr. Frederick notified and ordered to hold bisprolol for now.
--- NOTE | 2021-06-07 08:45 | NUR ---
ASSESSMENT COMPLETE. PT IS COOPERATIVE WITH CARES. PT RESTING IN BED. PT EAGER TO GO HOME. PT DENIES PAIN, PALPITATIONS, SOB OR DIZZINESS. PT TO GET DRESSING CHANGE TO RIGHT FOOT THIS MORNING. PT STATES HIS HAS NO OTHER NEEDS AT THIS TIME. CALL LIGHT WITHIN REACH.
--- NOTE | 2021-06-07 09:06 | NUR ---
SELENE NAIR CALLED ABOUT DRESSING CHANGE FREQUENCY AND SUPPLIES, HE REPORTED HE DID A DRESSING CHANGE WHEN HE SAW THE PT AND THAT HE WOULD NOT NEED ANOTHER ONE UNTIL HE CAME TO SEE THEM AT THE OFFICE.
--- NOTE | 2021-06-07 10:23 | NUR ---
SUSAN attended clinical rounds. The hospitalist is ready to discharge the patient today. SUSAN collaborated with pharmacy and the patient's IV antibiotics from [facility] were delivered to the hospital. SUSAN updated Paulette at [facility]. Paulette reports that she will be at the hospital around [id number] to hook the patient up to the infusion pump. She reports that the pump automatically infuses the antibiotic every 8 hours. SUSAN updated the patient and his RN. SUSAN updated Jeanette at [facility]. Jeanette reports that she has also talked to Paulette at [facility] and they are all good to start services with the patient. Jeanette reports that she will be reaching out to [facility] for specific instructions for his wound on his right foot. The patient is to discharge back home today, 06/07, with home IV antibiotics from [facility] and home health services for nursing home/PT/OT/wound care from [facility]. SUSAN notified and faxed orders to Jeanette at [facility]. No additional needs at this time.
--- NOTE | 2021-06-07 11:47 | NUR ---
DISCHARGE EDUCATION WHEN OVER IN LENGTH WITH PT. PT VERBALIZED UNDERSTANDING, QUESTIONS ANSWERED AT THIS TIME, PICC IN PLACE, DRESSING CHANGED ON R FOOT ULCER
[2021-06-07 12:16] VITALS: BP 97/70; PULSE 76; TEMP 97.3
--- NOTE | 2021-06-07 14:03 | NUR ---
PT WALKED OUT WITH PT BELONGINGS AND PT FAMILY. NO OTHER QUESTIONS OR NEEDS
--- NOTE | 2021-06-12 10:30 | NUR ---
[employer] spoke with Jeanette at [facility] on 06/09/21 who advised they had concerns about following patient and patient's ability to administer his IV antibiotics. SW advised Jeanette that patient had a referral at one point to [facility] in [place], however patient made improvements with PT/OT and chose to return home with HH.
--- NOTE | 2021-06-14 11:30 | NUR ---
On 06/12/21, social media content specialist received call from Van at [facility] that they will be picking up patient to home health services as [facility] was not able to continue services as patient was not understanding how to be taughter to administer his IV antibiotics. Worker concurred with Betsy at [facility] that they had stopped services and discussed with patient and his provider that he would start outpatient IV treatment. This, according to Van, did not happen and acquaintenances had assisted patient with IV treatment throughout the weekend. [facility] is now providing IV treatment.
== END 2021-06-07 14:00 | disposition home or self-care (01) | DRG 256 ==
LOC: COL.ER 16:29 → MEDICAL 18:12
PROVIDERS: Emergency Medicine; Internal Medicine; Orthopaedic Surgery; Physician Assistant; Student in an Organized Health Care Education/Training Program; ADMIT Internal Medicine
PROC: 0Y6U0Z1 Detachment at Left 3rd Toe, High, Open Approach (ICD-10-PCS; principal; 2021-05-31 07:30)
PROC: 02HV33Z Insertion of Infusion Device into Superior Vena Cava, Percutaneous Approach (ICD-10-PCS; 2021-06-05)
DX: I48.91 Unspecified atrial fibrillation (principal); I50.22 Chronic systolic (congestive) heart failure; M86.9 Osteomyelitis, unspecified; K21.9 Gastro-esophageal reflux disease without esophagitis; N40.0 Benign prostatic hyperplasia without lower urinary tract symptoms; E78.00 Pure hypercholesterolemia, unspecified; I11.0 Hypertensive heart disease with heart failure; I25.10 Atherosclerotic heart disease of native coronary artery without angina pectoris; J44.9 Chronic obstructive pulmonary disease, unspecified; I83.009 Varicose veins of unspecified lower extremity with ulcer of unspecified site; E03.9 Hypothyroidism, unspecified; R21 Rash and other nonspecific skin eruption; I87.8 Other specified disorders of veins; I25.5 Ischemic cardiomyopathy; B96.1 Klebsiella pneumoniae [K. pneumoniae] as the cause of diseases classified elsewhere; B95.2 Enterococcus as the cause of diseases classified elsewhere; B96.5 Pseudomonas (aeruginosa) (mallei) (pseudomallei) as the cause of diseases classified elsewhere; L97.519 Non-pressure chronic ulcer of other part of right foot with unspecified severity; I95.9 Hypotension, unspecified; Z79.82 Long term (current) use of aspirin; Z79.52 Long term (current) use of systemic steroids; Z87.891 Personal history of nicotine dependence
CPT/HCPCS: 99223-AI; 99232-AI; 99233-AI; 99239; A9585; C1751; J0690; J1160; J1644; J2250; J2405; J2543; J2704; J3010; J3370; J3475; J7030; J7040; J7050; J7512

== ENCOUNTER 2022-02-05 11:23 | Outpatient (CLI) | payer MEDICARE, BC ==
[~2022-02-05] VITALS: Ht 193 cm; Wt 94.5 kg
[2022-02-05 10:31] VITALS: BP 121/66; PULSE 107; TEMP 97.9
[~2022-02-05 11:23] MED LIST changes: +BETAMETHASONE D0.053 TP; +DIGITEK0.25 MG PO; +LASIX 20MG TABL20 MG PO; +PREDNISONE 5MG5 MG PO; +PROBIOTIC ACID1 EAC3 PO; +ZOSYN 3 GM-0.371 PD1 IV
[2022-02-05] MEDS ORDERED: ZEBETA 5MG5 MG PO (17:53)
[2022-02-05] MEDS ORDERED: LANOXIN 0.120.125 MG PO (17:54)
[2022-02-05] MEDS ORDERED: MAG-OX 400400 MG/TAB PO (18:23)
[2022-02-05] MEDS ORDERED: PREDNISONE10 MG PO (18:24)
[2022-02-05] MEDS ORDERED: DOXYCYCLINE HY100 MG PO (18:25)
[2022-02-05] MEDS ORDERED: ISORDIL TITRADO30 MG PO (18:25)
== END 2022-02-05 18:25 | disposition home or self-care (01) ==
LOC: EUO 11:23
DX: M86.671 Other chronic osteomyelitis, right ankle and foot (principal)
CPT/HCPCS: C1751; J0692; J0878

== ENCOUNTER 2022-02-15 15:25 | Emergency (ER) | payer MEDICARE, BC ==
[~2022-02-15] VITALS: Ht 193 cm; Wt 94.1 kg
[~2022-02-15 15:25] MED LIST changes: +DOXYCYCLINE HY100 MG PO; +ISORDIL TITRADO30 MG PO; +LANOXIN 0.120.125 MG PO
[2022-02-15 15:50] VITALS: TEMP 97.8
[2022-02-15 16:49] LABS: BASO % 0.3 % (0.0-2.0); EOS % 0.3 % (0.0-4.0); GRAN # 6.7 K/mm3 (1.4-6.5); GRAN % 76.3 % (42.2-75.2); HEMATOCRIT 41.9 % (42.0-52.0); HEMOGLOBIN 14.2 g/dl (13.5-18.0); LYMPH # 1.1 K/mm3 (1.2-3.4); MEAN CELL VOLUME 102 fl (80.0-100.0); MEAN CORPUSCULAR HEMOGLOBIN 34 pg (27-31); MEAN CORPUSCULAR HGB CONC 34 g/dl (33.0-37.0); MEAN PLATELET VOLUME 10.2 fl (7.4-10.4); MONO # 0.9 K/mm3 (0.1-0.6); MONO % 10.5 % (1.7-9.3); PLATELET COUNT 247 K/mm3 (130-400); RED BLOOD COUNT 4.13 M/mm3 (4.20-5.60); REDCELL DISTRIBUTION WIDTH-CV 13.3 % (11.5-14.5)
[2022-02-15 17:03] LABS: ALBUMIN 2.7 gm/dL (3.4-4.8); CALCIUM 9.9 mg/dL (8.4-10.2); CREATININE, serum 1.38 mg/dL (0.72-1.25); PHOSPHOROUS 2.4 mg/dL (2.3-4.7); POTASSIUM 5.3 mmol/L (3.5-4.5)
[2022-02-15 17:10] LABS: TROPONIN-I 0.024 ng/mL (0.00-0.033)
[2022-02-15 20:52] VITALS: BP 136/97; PULSE 83
== END 2022-02-15 20:54 | disposition home or self-care (01) ==
LOC: COL.ER 15:25
PROVIDERS: Emergency Medicine
DX: N17.9 Acute kidney failure, unspecified (principal); F03.90 Unspecified dementia, unspecified severity, without behavioral disturbance, psychotic disturbance, mood disturbance, and anxiety
CPT/HCPCS: J0692; J7120